=== PATIENT | male | born 1980 | race Caucasian/White ===

== ENCOUNTER → 2016-10-04 | Outpatient (CLI) | payer OTHER ==
--- NOTE | 2016-10-05 08:14 | REP ---
Right wrist series: Four views. History: Pain and swelling right wrist. Findings: Four views of the right wrist demonstrate normal bones, joints, and soft tissues. No fracture or subluxation is seen. No evidence of arthropathy. Impression: Negative right wrist radiographs. Signed by Pop Becerra MD 10/05/2016 08:05 A
== END ==
LOC: M LRY 19:49
PROVIDERS: ATTEND Physician Assistant
DX: M25.531 Pain in right wrist (principal)